=== PATIENT | male | born 1955 | race African-American/Black ===

== ENCOUNTER → 2016-10-04 | Outpatient (CLI) | payer BC ==
--- NOTE | 2016-10-04 15:41 | REP ---
Prostate sonography: History: A large prostate nodule, testis mass. Sonographic findings: Transrectal prostate sonography demonstrates unremarkable seminal vesicles. Prostate gland is heterogeneously enlarged with calcifications and cystic changes noted. Glandular dimensions are measured at 4.8 x 3.1 x 4.8 cm with a calculated glandular volume of 37.4 mL. There is a 5 x 6 x 3 mm hypoechoic nodule in the peripheral zone on the left at the mid apical region. There is a small ejaculatory duct cyst on the left. This measures 2.4 mm. Impression: Heterogeneous enlargement of the central gland consistent with BPH. 6 mm hypoechoic nodule in the left mid apical peripheral zone. 2 mm cystic area in the region of the ejaculatory duct on the left. Signed by Richy Robin MD 10/04/2016 07:18 P
--- NOTE | 2016-10-05 03:30 | REP ---
Clinical: Enlarged left michelle scrotum. Technique: Real time romero scale and color Doppler evaluation using linear high frequency transducer. Findings: The bilateral testicles are normal in contour, size, echogenicity, and vascularity without evidence for intratesticular mass, infectious/inflammatory process, or torsion. Physical findings correspond to a 6.2 x 4.7 x 5.1 cm left epididymal cyst. Small insignificant hydroceles are identified. No varicoceles noted. Right testicle measures 5.3 x 2.7 x 1.9 cm. Left testicle measures 4.2 x 2.3 x 3.6 cm. Impression: 6 cm left epididymal head cyst. Normal bilateral testicles. Signed by Merlin Hall MD 10/05/2016 03:21 A
== END ==
LOC: M RAD 12:53
PROVIDERS: ATTEND Physician Assistant
DX: N40.0 Benign prostatic hyperplasia without lower urinary tract symptoms (principal); N50.3 Cyst of epididymis

== ENCOUNTER → 2021-08-19 | Outpatient (CLI) | payer BC, OTHER ==
[~2021-08-19] MED LIST: BUPR15TASR PO; LIDOCAINE 1% MDV 20ML VIAL As Ordered ONE; MELA3TAB49 PO; MIDAZOLAM INJ 2MG/2ML VIAL (J2250 PER 1MG) As Ordered ONE; NS 1,000 ML IV SCH; ONDA-84 PO; PROC10TA5 PO; ceFAZolin 2 GM/D5W 50 ML IV BAG (J0690 PER 500MG) As Ordered ONE; ceFAZolin SOD 2 GM in IV 1 EA IV ONE; diphenhydrAMINE 50MG/ML VIAL (J1200) As Ordered ONE; fentaNYL 100 MCG/2 ML INJECTION As Ordered ONE
[2021-08-19 14:52] VITALS: BP 144/78
== END ==
LOC: M IRPRO 10:03
PROVIDERS: ATTEND Internal Medicine Medical Oncology
DX: C7A.1 Malignant poorly differentiated neuroendocrine tumors (principal); C34.90 Malignant neoplasm of unspecified part of unspecified bronchus or lung
CPT/HCPCS: 36561; 99152; 99153; C1769; C1788; C1894; J0690; J1200; J1642; J1644; J2250; J3010

== ENCOUNTER → 2021-09-08 | Outpatient (POV) | payer OTHER ==
[~2021-09-08] VITALS: Ht 182.9 cm; Wt 84.0 kg
[~2021-09-08] MED LIST changes: -LIDOCAINE 1% MDV 20ML VIAL As Ordered ONE; -MIDAZOLAM INJ 2MG/2ML VIAL (J2250 PER 1MG) As Ordered ONE; -NS 1,000 ML IV SCH; -ceFAZolin 2 GM/D5W 50 ML IV BAG (J0690 PER 500MG) As Ordered ONE; -ceFAZolin SOD 2 GM in IV 1 EA IV ONE; -diphenhydrAMINE 50MG/ML VIAL (J1200) As Ordered ONE; -fentaNYL 100 MCG/2 ML INJECTION As Ordered ONE
[2021-09-08 10:00] VITALS: BP 148/83
== END ==
LOC: M IRPOV 09:48
PROVIDERS: ATTEND Radiology Diagnostic Radiology
DX: Z45.2 Encounter for adjustment and management of vascular access device (principal)

== ENCOUNTER → 2021-10-12 | Outpatient (CLI) | payer BC, OTHER ==
[~2021-10-12] MED LIST changes: +DECA4TAB PO; +GASTROGRAFIN SOLUTION 30ML (Q9963) As Ordered ONE; +ISOVUE-370 76% 100ML VIAL As Ordered ONE
== END ==
LOC: M RAD 15:32
PROVIDERS: ATTEND Internal Medicine Medical Oncology
DX: C34.90 Malignant neoplasm of unspecified part of unspecified bronchus or lung (principal)
CPT/HCPCS: 71260; 74177; J1642; Q9963; Q9967

== ENCOUNTER → 2021-12-14 | Outpatient (REF) | payer OTHER, BC ==
[~2021-12-14] MED LIST changes: +AZIT500T5 PO; -GASTROGRAFIN SOLUTION 30ML (Q9963) As Ordered ONE; -ISOVUE-370 76% 100ML VIAL As Ordered ONE
== END ==
LOC: M LAB REF 11:46
PROVIDERS: ATTEND Internal Medicine Medical Oncology
DX: C34.90 Malignant neoplasm of unspecified part of unspecified bronchus or lung (principal)

== ENCOUNTER → 2022-01-05 | Outpatient (CLI) | payer OTHER ==
[~2022-01-05] MED LIST changes: +GASTROGRAFIN SOLUTION 30ML (Q9963) As Ordered ONE; +ISOVUE-370 76% 100ML VIAL As Ordered ONE
== END ==
LOC: M RAD 11:28
PROVIDERS: ATTEND Internal Medicine Medical Oncology
DX: C34.90 Malignant neoplasm of unspecified part of unspecified bronchus or lung (principal)
CPT/HCPCS: 71260; 74177; J1642; Q9963; Q9967

== ENCOUNTER → 2022-04-06 | Outpatient (CLI) | payer OTHER ==
[~2022-04-06] MED LIST changes: +NOXI1TAB PO
== END ==
LOC: M RAD 12:31
PROVIDERS: ATTEND Internal Medicine Medical Oncology
DX: C34.90 Malignant neoplasm of unspecified part of unspecified bronchus or lung (principal)
CPT/HCPCS: 71260; 74177; J1642; Q9963; Q9967

== ENCOUNTER → 2022-05-23 | Outpatient (CLI) | payer OTHER ==
[~2022-05-23] MED LIST changes: -GASTROGRAFIN SOLUTION 30ML (Q9963) As Ordered ONE; -ISOVUE-370 76% 100ML VIAL As Ordered ONE; +VITA-183 PO
== END ==
LOC: M LABSMTC 11:54
PROVIDERS: ATTEND Anesthesiology
DX: Z01.812 Encounter for preprocedural laboratory examination (principal); Z20.822 Contact with and (suspected) exposure to COVID-19

== ENCOUNTER 2022-05-27 11:18 | Day surgery (SDC) | payer OTHER ==
[~2022-05-27] VITALS: Ht 182.9 cm; Wt 86.1 kg
[~2022-05-27 11:18] MED LIST changes: +NS 1,000 ML IV ONE
[2022-05-27 13:40] VITALS: BP 146/85
== END 2022-05-27 13:50 | disposition home or self-care (01) ==
LOC: M OPP 11:18
PROVIDERS: ATTEND Surgery
DX: Z12.11 Encounter for screening for malignant neoplasm of colon (principal); D12.6 Benign neoplasm of colon, unspecified; K57.30 Diverticulosis of large intestine without perforation or abscess without bleeding; Z87.891 Personal history of nicotine dependence; Z85.118 Personal history of other malignant neoplasm of bronchus and lung; Z85.528 Personal history of other malignant neoplasm of kidney; Z92.21 Personal history of antineoplastic chemotherapy; Z92.3 Personal history of irradiation

== ENCOUNTER 2022-07-15 23:15 | Emergency (ER) | payer BC, OTHER ==
[~2022-07-15] VITALS: Ht 182.9 cm; Wt 91.0 kg
[~2022-07-15 23:15] MED LIST changes: -NS 1,000 ML IV ONE; +PEPC40TA12 PO; +PRED20TA PO
[2022-07-15] MEDS ORDERED: NS 1,000 ML IV ONE (23:45)
[2022-07-15] MEDS ORDERED: ONDANSETRON 4MG 2ML VIAL IV ONE (23:50)
[2022-07-15] MEDS ORDERED: ATROPINE SULF 1MG/10ML SYRINGE IV STA (23:50)
[2022-07-16] MEDS ORDERED: MIDAZOLAM INJ 2MG/2ML VIAL (J2250 PER 1MG) IV ONE (00:05)
[2022-07-16] MEDS ORDERED: MORPHINE 4 MG/ML 1ML VIAL As Ordered ONE (00:15)
[2022-07-16 00:21] LABS: CK-MB VALUE MASS < 1.0 NG/ML (<3.6); ETHYL ALCOHOL (ETHANOL) 0.017 % (0.000-0.010)
[2022-07-16 00:25] LABS: FREE T4 1.11 NG/DL (0.89-1.76); THYROID STIMULATING HORMONE 3.919 uIU/ML (0.55-4.78)
[2022-07-16] MEDS ORDERED: HEPARIN SOD (PORCINE) 5000UNITS/ML 1ML VIAL/SYRINGE IV ONE (00:30)
[2022-07-16] MEDS ORDERED: ASPIRIN 81MG CHEW TABLET PO ONE (00:30)
[2022-07-16] MEDS ORDERED: HEPARIN DRIP 25,000 UNITS in IV 1 EA IV SCH (00:30)
[2022-07-16 00:31] LABS: BASO # 0.1 10^3/uL (0.0-0.2); BASO % 0.7 % (0.0-1.0); EOS # 0.2 10^3/uL (0.0-0.5); EOS % 0.8 % (0.0-3.0); HEMATOCRIT 44.7 % (42.0-52.0); HEMOGLOBIN 14.6 g/dl (13.5-17.5); LYMPH # 3.7 10^3/uL (1.5-5.0); LYMPH % 19.6 % (24.0-44.0); MEAN CORPUSCULAR HEMOGLOBIN 28.6 pg (27.0-33.0); MEAN CORPUSCULAR HGB CONC 32.7 g/dl (32.0-36.5); MEAN CORPUSCULAR VOLUME 87.5 fl (80.0-96.0); MONO % 9.4 % (2.0-8.0); NEUTROPHILS # 12.8 10^3/uL (1.5-8.5); NEUTROPHILS % 68.3 % (36.0-66.0); PLATELET COUNT, AUTOMATED 294 10^3/uL (150-450); RED BLOOD COUNT 5.11 10^6/uL (4.30-6.10); WHITE BLOOD COUNT 18.7 10^3/uL (4.0-10.0)
[2022-07-16 00:35] LABS: CPK CREATINE PHOSPHOKINASE 53 U/L (46-171); MB/CK RELATIVE INDEX 1.88 (< OR =4)
[2022-07-16 00:42] LABS: BLOOD UREA NITROGEN 22 MG/DL (9-23); CALCIUM LEVEL 10.4 MG/DL (8.3-10.6); CARBON DIOXIDE LEVEL 22 MMOL/L (20-31); CHLORIDE LEVEL 102 MMOL/L (98-107); CREATININE FOR GFR 1.36 MG/DL (0.70-1.30); GLOMERULAR FILTRATION RATE 55.3 (>49); GLUCOSE, FASTING 130 MG/DL (74-106); POTASSIUM SERUM 4.4 MMOL/L (3.5-5.1); SODIUM LEVEL 138 MMOL/L (136-145)
[2022-07-16 01:12] VITALS: BP 87/53
[2022-07-16 01:21] LABS: MONO # 1.8 10^3/uL (0.0-0.8)
[2022-07-16 01:25] LABS: RSV AMPLIFICATION NEGATIVE (NEGATIVE)
== END 2022-07-16 01:31 | disposition short-term general hospital (02) ==
LOC: M ED 23:15
DX: I21.3 ST elevation (STEMI) myocardial infarction of unspecified site (principal); I44.1 Atrioventricular block, second degree; R00.1 Bradycardia, unspecified; F17.200 Nicotine dependence, unspecified, uncomplicated; F12.10 Cannabis abuse, uncomplicated; Z79.899 Other long term (current) drug therapy
CPT/HCPCS: 71045; 80048; 82077; 82550; 82553; 83880; 84439; 84443; 84484; 85025; 87631; 93005; 93041; 94760; 96361; 96365; 99285; J0461; J1644; J2250; J2405

== ENCOUNTER → 2022-07-22 | Outpatient (CLI) | payer OTHER ==
[~2022-07-22] MED LIST changes: +GASTROGRAFIN SOLUTION 30ML As Ordered ONE; +ISOVUE-370 76% 100ML VIAL As Ordered ONE
== END ==
LOC: M RAD 11:05
PROVIDERS: ATTEND Internal Medicine Medical Oncology
DX: C34.91 Malignant neoplasm of unspecified part of right bronchus or lung (principal)
CPT/HCPCS: 71260; 74177; Q9963; Q9967

== ENCOUNTER 2022-08-21 13:38 | Inpatient (IN) | payer BC, OTHER ==
[~2022-08-21] VITALS: Ht 182.9 cm; Wt 82.7 kg
[~2022-08-21 13:38] MED LIST changes: +ASPI81CH33 PO; +ATOR80TA59 PO; +BRIL90TA PO; -GASTROGRAFIN SOLUTION 30ML As Ordered ONE; -ISOVUE-370 76% 100ML VIAL As Ordered ONE; +NITR0.4S14 SL; +ONDA8TAB8 PO; +TOPR50TA PO
[2022-08-21] MEDS ORDERED: PROMETHAZINE 25MG/ML 1ML VIAL IV ONE (15:10)
[2022-08-21 15:28] LABS: BASO % 0.4 % (0.0-1.0); EOS % 0.4 % (0.0-3.0); HEMATOCRIT 44.8 % (42.0-52.0); HEMOGLOBIN 14.8 g/dl (13.5-17.5); LYMPH # 0.7 10^3/uL (1.5-5.0); LYMPH % 7.6 % (24.0-44.0); MEAN CORPUSCULAR VOLUME 84.8 fl (80.0-96.0); MONO # 0.2 10^3/uL (0.0-0.8); MONO % 1.8 % (2.0-8.0); NEUTROPHILS # 8.1 10^3/uL (1.5-8.5); NEUTROPHILS % 89.6 % (36.0-66.0); PLATELET COUNT, AUTOMATED 268 10^3/uL (150-450); RED BLOOD COUNT 5.28 10^6/uL (4.30-6.10)
[2022-08-21] MEDS: NS 1,000 ML IV SCH ×2 (15:31→22:00)
[2022-08-21 15:55] LABS: BLOOD UREA NITROGEN 18 MG/DL (9-23); CALCIUM LEVEL 9.3 MG/DL (8.3-10.6); CARBON DIOXIDE LEVEL 25 MMOL/L (20-31); CHLORIDE LEVEL 99 MMOL/L (98-107); CREATININE FOR GFR 0.84 MG/DL (0.70-1.30); GLOMERULAR FILTRATION RATE > 60.0 (>49); GLUCOSE, FASTING 110 MG/DL (74-106); POTASSIUM SERUM 4.6 MMOL/L (3.5-5.1); SODIUM LEVEL 131 MMOL/L (136-145)
[2022-08-21 15:56] LABS: ALBUMIN 3.2 G/DL (3.2-5.2); BILIRUBIN,DIRECT 0.2 MG/DL (<0.4); BILIRUBIN,TOTAL 0.8 MG/DL (0.3-1.2); TOTAL PROTEIN 7.8 G/DL (5.7-8.2)
[2022-08-21] MEDS ORDERED: ONDANSETRON 4MG 2ML VIAL IV ONE (17:25)
[2022-08-21] MEDS: TICAGRELOR 90 MG TABLET (BRILINTA) PO SCH (21:00)
[2022-08-21 21:14] LABS: RSV AMPLIFICATION NEGATIVE (NEGATIVE)
[2022-08-21] MEDS ORDERED: HOME MED LIST COMPLETE! XX SCH (21:15)
[2022-08-21] MEDS ORDERED: NITROGLYCERIN 0.4MG SUBL TABLET SL SCH (21:45)
[2022-08-21] MEDS ORDERED: PROCHLORPERAZINE 10MG 2ML VIAL IM PRN (22:00)
[2022-08-21 22:04] LABS: INR 0.98; PROTHROMBIN TIME 13.2 SECONDS (12.5-14.5)
[2022-08-21 22:05] LABS: PARTIAL THROMBOPLASTIN TIME 31.6 SECONDS (24.8-34.2)
[2022-08-21] MEDS: ONDANSETRON 4MG 2ML VIAL IV PRN (22:54)
[2022-08-21 23:10] VITALS: BP 151/94
[2022-08-22] MEDS: NS 1,000 ML IV SCH ×3 (04:46→17:54)
[2022-08-22 06:00] VITALS: BP 149/80
[2022-08-22] MEDS: ONDANSETRON 4MG 2ML VIAL IV PRN ×2 (06:25→17:55)
[2022-08-22 06:34] VITALS: BP 141/73
[2022-08-22 08:31] LABS: HEMOGLOBIN 13.7 g/dl (13.5-17.5); MEAN CORPUSCULAR HEMOGLOBIN 28.2 pg (27.0-33.0); MEAN CORPUSCULAR HGB CONC 32.6 g/dl (32.0-36.5); MEAN CORPUSCULAR VOLUME 86.6 fl (80.0-96.0); PLATELET COUNT, AUTOMATED 232 10^3/uL (150-450); RED BLOOD COUNT 4.85 10^6/uL (4.30-6.10); WHITE BLOOD COUNT 6.7 10^3/uL (4.0-10.0)
[2022-08-22 09:00] LABS: BLOOD UREA NITROGEN 19 MG/DL (9-23); CALCIUM LEVEL 8.7 MG/DL (8.3-10.6); CARBON DIOXIDE LEVEL 21 MMOL/L (20-31); CHLORIDE LEVEL 103 MMOL/L (98-107); CREATININE FOR GFR 0.78 MG/DL (0.70-1.30); GLOMERULAR FILTRATION RATE > 60.0 (>49); GLUCOSE, FASTING 92 MG/DL (74-106); MAGNESIUM LEVEL 1.8 MG/DL (1.8-2.4); POTASSIUM SERUM 4.7 MMOL/L (3.5-5.1); SODIUM LEVEL 132 MMOL/L (136-145)
[2022-08-22] MEDS: TICAGRELOR 90 MG TABLET (BRILINTA) PO SCH ×2 (09:23→20:45)
[2022-08-22] MEDS: ASPIRIN 81MG CHEW TABLET PO SCH (09:23)
[2022-08-22] MEDS: FAMOTIDINE 20 MG TAB PO SCH (09:23)
[2022-08-22] MEDS: ATORVASTATIN 20 MG TAB PO SCH (09:23)
[2022-08-22] MEDS: METOPROLOL SUCC (TopROL XL) 50MG **XL** TAB PO SCH (09:24)
[2022-08-22 14:00] VITALS: BP 137/89
[2022-08-22] MEDS ORDERED: MIRALAX *UNIT DOSE* 17GM PACKET PO PRN (16:35)
[2022-08-22] MEDS: ENOXAPARIN 40MG/0.4ML SYRINGE (J1650 PER 10MG) SC SCH (17:54)
[2022-08-22] MEDS: SENNA 8.6 MG TAB (SENOKOT) PO SCH (20:45)
[2022-08-22] MEDS: DOCUSATE SODIUM 100MG CAPSULE PO SCH (20:45)
[2022-08-22 22:00] VITALS: BP 120/73
[2022-08-23] MEDS: NS 1,000 ML IV SCH ×4 (00:30→18:53)
[2022-08-23 05:41] LABS: HEMATOCRIT 38.4 % (42.0-52.0); HEMOGLOBIN 12.7 g/dl (13.5-17.5); MEAN CORPUSCULAR HEMOGLOBIN 28.1 pg (27.0-33.0); MEAN CORPUSCULAR HGB CONC 33.1 g/dl (32.0-36.5); PLATELET COUNT, AUTOMATED 184 10^3/uL (150-450); RED BLOOD COUNT 4.52 10^6/uL (4.30-6.10); WHITE BLOOD COUNT 4.9 10^3/uL (4.0-10.0)
[2022-08-23 06:00] VITALS: BP 128/73
[2022-08-23 06:11] LABS: ALBUMIN 2.6 G/DL (3.2-5.2); ALKALINE PHOSPHATASE 74 U/L (46-116); ALT/SGPT 75 U/L (7.0-40); AST/SGOT 63 U/L (<34); BILIRUBIN,TOTAL 0.9 MG/DL (0.3-1.2); BLOOD UREA NITROGEN 17 MG/DL (9-23); CALCIUM LEVEL 8.4 MG/DL (8.3-10.6); CARBON DIOXIDE LEVEL 24 MMOL/L (20-31); CHLORIDE LEVEL 103 MMOL/L (98-107); CREATININE FOR GFR 0.86 MG/DL (0.70-1.30); GLOMERULAR FILTRATION RATE > 60.0 (>49); GLUCOSE, FASTING 104 MG/DL (74-106); POTASSIUM SERUM 4.2 MMOL/L (3.5-5.1); SODIUM LEVEL 133 MMOL/L (136-145); TOTAL PROTEIN 5.8 G/DL (5.7-8.2)
[2022-08-23] MEDS: FAMOTIDINE 20 MG TAB PO SCH (08:29)
[2022-08-23] MEDS: TICAGRELOR 90 MG TABLET (BRILINTA) PO SCH ×2 (08:29→20:34)
[2022-08-23] MEDS: ASPIRIN 81MG CHEW TABLET PO SCH (08:29)
[2022-08-23] MEDS: DOCUSATE SODIUM 100MG CAPSULE PO SCH ×2 (08:29→20:34)
[2022-08-23] MEDS: ATORVASTATIN 20 MG TAB PO SCH (08:29)
[2022-08-23] MEDS: METOPROLOL SUCC (TopROL XL) 50MG **XL** TAB PO SCH (08:30)
[2022-08-23] MEDS: ONDANSETRON 4MG 2ML VIAL IV PRN (12:30)
[2022-08-23 14:00] VITALS: BP 146/90
[2022-08-23] MEDS: ENOXAPARIN 40MG/0.4ML SYRINGE (J1650 PER 10MG) SC SCH (18:00)
[2022-08-23] MEDS: SENNA 8.6 MG TAB (SENOKOT) PO SCH (20:34)
[2022-08-23 22:21] VITALS: BP 121/81
[2022-08-24] MEDS: NS 1,000 ML IV SCH ×2 (01:19→09:23)
[2022-08-24 06:01] VITALS: BP 143/94
[2022-08-24 06:02] LABS: HEMOGLOBIN 13.8 g/dl (13.5-17.5); MEAN CORPUSCULAR HEMOGLOBIN 27.9 pg (27.0-33.0); MEAN CORPUSCULAR HGB CONC 32.9 g/dl (32.0-36.5); MEAN CORPUSCULAR VOLUME 84.8 fl (80.0-96.0); PLATELET COUNT, AUTOMATED 185 10^3/uL (150-450); RED BLOOD COUNT 4.95 10^6/uL (4.30-6.10); WHITE BLOOD COUNT 3.9 10^3/uL (4.0-10.0)
[2022-08-24 06:29] LABS: ALBUMIN 2.8 G/DL (3.2-5.2); ALKALINE PHOSPHATASE 85 U/L (46-116); ALT/SGPT 72 U/L (7.0-40); AST/SGOT 58 U/L (<34); BILIRUBIN,TOTAL 0.5 MG/DL (0.3-1.2); BLOOD UREA NITROGEN 12 MG/DL (9-23); CALCIUM LEVEL 8.5 MG/DL (8.3-10.6); CARBON DIOXIDE LEVEL 25 MMOL/L (20-31); CHLORIDE LEVEL 102 MMOL/L (98-107); CREATININE FOR GFR 0.81 MG/DL (0.70-1.30); GLOMERULAR FILTRATION RATE > 60.0 (>49); GLUCOSE, FASTING 86 MG/DL (74-106); POTASSIUM SERUM 4.4 MMOL/L (3.5-5.1); SODIUM LEVEL 132 MMOL/L (136-145); TOTAL PROTEIN 6.7 G/DL (5.7-8.2)
[2022-08-24 09:20] VITALS: BP 143/94
[2022-08-24] MEDS: METOPROLOL SUCC (TopROL XL) 50MG **XL** TAB PO SCH (09:20)
[2022-08-24] MEDS: ASPIRIN 81MG CHEW TABLET PO SCH (09:20)
[2022-08-24] MEDS: ATORVASTATIN 20 MG TAB PO SCH (09:20)
[2022-08-24] MEDS: TICAGRELOR 90 MG TABLET (BRILINTA) PO SCH (09:20)
[2022-08-24] MEDS: DOCUSATE SODIUM 100MG CAPSULE PO SCH (09:20)
[2022-08-24] MEDS: FAMOTIDINE 20 MG TAB PO SCH (09:20)
== END 2022-08-24 10:25 | disposition home or self-care (01) | DRG 392 ==
LOC: M ED 13:38 → M ED INP 20:52 → ENRESERV 22:43 → M MS5PR 23:05
PROVIDERS: ADMIT Family Medicine; ATTEND General Practice
DX: R11.2 Nausea with vomiting, unspecified (principal); C34.90 Malignant neoplasm of unspecified part of unspecified bronchus or lung; E87.1 Hypo-osmolality and hyponatremia; J44.9 Chronic obstructive pulmonary disease, unspecified; I10 Essential (primary) hypertension; K21.9 Gastro-esophageal reflux disease without esophagitis; E78.5 Hyperlipidemia, unspecified; I25.10 Atherosclerotic heart disease of native coronary artery without angina pectoris; E86.0 Dehydration; Z92.21 Personal history of antineoplastic chemotherapy; Z95.2 Presence of prosthetic heart valve; K44.9 Diaphragmatic hernia without obstruction or gangrene; N20.0 Calculus of kidney; K57.30 Diverticulosis of large intestine without perforation or abscess without bleeding; K59.00 Constipation, unspecified; Z79.82 Long term (current) use of aspirin; Z79.899 Other long term (current) drug therapy; Z87.891 Personal history of nicotine dependence; N28.1 Cyst of kidney, acquired

== ENCOUNTER 2022-10-04 09:34 | Emergency (ER) | payer BC, MEDICARE, OTHER ==
[~2022-10-04] VITALS: Ht 182.9 cm; Wt 78.4 kg
[~2022-10-04 09:34] MED LIST changes: +OMEP-173 PO; +ZYPR5TAB2 PO
[2022-10-04] MEDS ORDERED: PROMETHAZINE 25MG/ML 1ML VIAL IV ONE (10:05)
[2022-10-04 10:34] LABS: BASO # 0.1 10^3/uL (0.0-0.2); BASO % 0.6 % (0.0-1.0); EOS % 0.1 % (0.0-3.0); HEMATOCRIT 36.4 % (42.0-52.0); HEMOGLOBIN 12.4 g/dl (13.5-17.5); LYMPH # 0.6 10^3/uL (1.5-5.0); LYMPH % 7.4 % (24.0-44.0); MEAN CORPUSCULAR HEMOGLOBIN 28.5 pg (27.0-33.0); MEAN CORPUSCULAR HGB CONC 34.1 g/dl (32.0-36.5); MEAN CORPUSCULAR VOLUME 83.7 fl (80.0-96.0); MONO # 0.2 10^3/uL (0.0-0.8); MONO % 1.8 % (2.0-8.0); NEUTROPHILS # 7.7 10^3/uL (1.5-8.5); NEUTROPHILS % 89.6 % (36.0-66.0); PLATELET COUNT, AUTOMATED 334 10^3/uL (150-450); RED BLOOD COUNT 4.35 10^6/uL (4.30-6.10); WHITE BLOOD COUNT 8.6 10^3/uL (4.0-10.0)
[2022-10-04 10:40] LABS: INR 0.93; PROTHROMBIN TIME 12.7 SECONDS (12.5-14.5)
[2022-10-04 10:41] LABS: PARTIAL THROMBOPLASTIN TIME 29.3 SECONDS (24.8-34.2)
[2022-10-04 11:00] LABS: RSV AMPLIFICATION NEGATIVE (NEGATIVE)
[2022-10-04 11:01] LABS: CK-MB VALUE MASS 18.9 NG/ML (<3.6)
[2022-10-04 11:03] LABS: ETHYL ALCOHOL (ETHANOL) 0.003 % (0.000-0.010)
[2022-10-04 11:04] LABS: THYROID STIMULATING HORMONE 1.087 uIU/ML (0.55-4.78)
[2022-10-04 11:05] LABS: ALBUMIN 3.4 G/DL (3.2-5.2); ALKALINE PHOSPHATASE 109 U/L (46-116); ALT/SGPT 63 U/L (7.0-40); AST/SGOT 40 U/L (<34); BILIRUBIN,DIRECT 0.3 MG/DL (<0.4); BILIRUBIN,TOTAL 0.7 MG/DL (0.3-1.2); BLOOD UREA NITROGEN 25 MG/DL (9-23); CALCIUM LEVEL 9.3 MG/DL (8.3-10.6); CARBON DIOXIDE LEVEL 26 MMOL/L (20-31); CHLORIDE LEVEL 95 MMOL/L (98-107); CPK CREATINE PHOSPHOKINASE 155 U/L (46-171); CREATININE FOR GFR 0.82 MG/DL (0.70-1.30); GLOMERULAR FILTRATION RATE > 60.0 (>49); GLUCOSE, FASTING 109 MG/DL (74-106); MB/CK RELATIVE INDEX 12.19 (< OR =4); POTASSIUM SERUM 4.2 MMOL/L (3.5-5.1); SODIUM LEVEL 129 MMOL/L (136-145); TOTAL PROTEIN 7.4 G/DL (5.7-8.2)
[2022-10-04] MEDS ORDERED: ISOVUE-370 76% 100ML VIAL As Ordered ONE (11:27)
[2022-10-04 13:11] LABS: CK-MB VALUE MASS 24.1 NG/ML (<3.6)
[2022-10-04 13:12] LABS: MB/CK RELATIVE INDEX 14.09 (< OR =4)
[2022-10-04] MEDS ORDERED: TICAGRELOR 90 MG TABLET (BRILINTA) PO ONE (14:00)
[2022-10-04] MEDS ORDERED: HEPARIN DRIP 25,000 UNITS in IV 1 EA IV SCH (14:00)
[2022-10-04] MEDS ORDERED: HEPARIN SOD (PORCINE) 5000UNITS/ML 1ML VIAL/SYRINGE IV ONE (14:00)
[2022-10-04] MEDS ORDERED: ASPIRIN 81MG CHEW TABLET PO ONE (14:00)
[2022-10-04] MEDS ORDERED: ONDANSETRON 4MG 2ML VIAL IV ONE (15:05)
[2022-10-04 15:37] VITALS: BP 137/79
== END 2022-10-04 15:44 | disposition short-term general hospital (02) ==
LOC: M ED 09:34
DX: I21.4 Non-ST elevation (NSTEMI) myocardial infarction (principal); R55 Syncope and collapse; I25.2 Old myocardial infarction; I10 Essential (primary) hypertension; J44.9 Chronic obstructive pulmonary disease, unspecified; K21.9 Gastro-esophageal reflux disease without esophagitis; E78.5 Hyperlipidemia, unspecified; F17.200 Nicotine dependence, unspecified, uncomplicated; Z86.79 Personal history of other diseases of the circulatory system; Z79.82 Long term (current) use of aspirin; Z79.02 Long term (current) use of antithrombotics/antiplatelets; Z79.83 Long term (current) use of bisphosphonates; Z79.899 Other long term (current) drug therapy
CPT/HCPCS: 70450; 71045; 71275; 72125; 74177; 80048; 80076; 82077; 82550; 82553; 83605; 84145; 84443; 84484; 85025; 85610; 85730; 87040; 87631; 93005; 93041; 94760; 96374; 96375; 99285; J2405; Q9967

== ENCOUNTER 2022-11-16 20:00 | Observation (INO) | payer BC, MEDICARE, OTHER ==
[~2022-11-16] VITALS: Ht 182.9 cm; Wt 76.6 kg
[~2022-11-16 20:00] MED LIST changes: +CLOP75TA99 PO; +DEXA4TA PO; +ISOS1TAB35 PO; +PANT40TA29 PO; +SODIUM CHLORIDE 0.9% INJ 10 ML SYR IV SCH
[2022-11-16] MEDS ORDERED: METOCLOPRAMIDE INJ 10MG/2ML VIAL IV ONE (20:35)
[2022-11-16] MEDS ORDERED: NS 1,000 ML IV ONE (20:35)
[2022-11-16 21:22] LABS: BASO % 1.4 % (0.0-1.0); EOS % 1.1 % (0.0-3.0); HEMATOCRIT 33.5 % (42.0-52.0); HEMOGLOBIN 11.2 g/dl (13.5-17.5); LYMPH # 0.5 10^3/uL (1.5-5.0); LYMPH % 17.7 % (24.0-44.0); MEAN CORPUSCULAR HEMOGLOBIN 28.4 pg (27.0-33.0); MEAN CORPUSCULAR HGB CONC 33.4 g/dl (32.0-36.5); MEAN CORPUSCULAR VOLUME 84.8 fl (80.0-96.0); MONO # 0.1 10^3/uL (0.0-0.8); MONO % 3.2 % (2.0-8.0); NEUTROPHILS # 2.1 10^3/uL (1.5-8.5); NEUTROPHILS % 75.2 % (36.0-66.0); PLATELET COUNT, AUTOMATED 217 10^3/uL (150-450); RED BLOOD COUNT 3.95 10^6/uL (4.30-6.10); WHITE BLOOD COUNT 2.8 10^3/uL (4.0-10.0)
[2022-11-16 21:42] LABS: LIPASE 62 U/L (12-53)
[2022-11-16 21:44] LABS: ALKALINE PHOSPHATASE 99 U/L (46-116); ALT/SGPT 40 U/L (7.0-40); AST/SGOT 40 U/L (<34); BILIRUBIN,DIRECT 0.2 MG/DL (<0.4); BILIRUBIN,TOTAL 0.3 MG/DL (0.3-1.2); BLOOD UREA NITROGEN 18 MG/DL (9-23); CALCIUM LEVEL 8.9 MG/DL (8.3-10.6); CARBON DIOXIDE LEVEL 24 MMOL/L (20-31); CHLORIDE LEVEL 101 MMOL/L (98-107); CREATININE FOR GFR 0.77 MG/DL (0.70-1.30); GLOMERULAR FILTRATION RATE > 60.0 (>49); GLUCOSE, FASTING 102 MG/DL (74-106); MAGNESIUM LEVEL 1.5 MG/DL (1.8-2.4); SODIUM LEVEL 131 MMOL/L (136-145); TOTAL PROTEIN 6.7 G/DL (5.7-8.2)
[2022-11-16] MEDS ORDERED: PROMETHAZINE 25MG/ML 1ML VIAL IV ONE (22:00)
[2022-11-16] MEDS ORDERED: MAG SULF 1GM/100ML (MAG RUN) 1 GM in IV 1 EA IV ONE (22:05)
[2022-11-16] MEDS ORDERED: ACETAMINOPHEN TAB 650MG DOSE (2X325MG) PO PRN (23:55)
[2022-11-17] MEDS ORDERED: SODIUM CHLORIDE 0.9% INJ 10 ML SYR IV PRN
[2022-11-17] MEDS ORDERED: LR 1,000 ML IV ONE
[2022-11-17] MEDS ORDERED: OLANZapine 5 MG TAB PO ONE
[2022-11-17] MEDS ORDERED: PROMETHAZINE 25MG/ML 1ML VIAL IV PRN
[2022-11-17] MEDS ORDERED: NITR4TASL SL (00:29)
[2022-11-17] MEDS ORDERED: METO1TAB33 PO (00:29)
[2022-11-17] MEDS ORDERED: HOME MED LIST COMPLETE! XX SCH (00:30)
[2022-11-17 00:31] LABS: RSV AMPLIFICATION NEGATIVE (NEGATIVE)
[2022-11-17 01:34] VITALS: BP 143/82
[2022-11-17] MEDS: METOCLOPRAMIDE INJ 10MG/2ML VIAL IV SCH ×3 (05:15→16:00)
[2022-11-17 06:00] VITALS: BP 139/81
[2022-11-17 06:50] LABS: HEMOGLOBIN 10.5 g/dl (13.5-17.5); MEAN CORPUSCULAR HEMOGLOBIN 28.3 pg (27.0-33.0); MEAN CORPUSCULAR HGB CONC 32.8 g/dl (32.0-36.5); MEAN CORPUSCULAR VOLUME 86.3 fl (80.0-96.0); PLATELET COUNT, AUTOMATED 164 10^3/uL (150-450); RED BLOOD COUNT 3.71 10^6/uL (4.30-6.10); WHITE BLOOD COUNT 1.9 10^3/uL (4.0-10.0)
[2022-11-17 07:15] LABS: BLOOD UREA NITROGEN 14 MG/DL (9-23); CALCIUM LEVEL 8.9 MG/DL (8.3-10.6); CARBON DIOXIDE LEVEL 25 MMOL/L (20-31); CHLORIDE LEVEL 102 MMOL/L (98-107); CREATININE FOR GFR 0.75 MG/DL (0.70-1.30); GLOMERULAR FILTRATION RATE > 60.0 (>49); GLUCOSE, FASTING 88 MG/DL (74-106); MAGNESIUM LEVEL 1.8 MG/DL (1.8-2.4); POTASSIUM SERUM 4.3 MMOL/L (3.5-5.1); SODIUM LEVEL 132 MMOL/L (136-145)
[2022-11-17 08:41] VITALS: BP 140/72
[2022-11-17] MEDS ORDERED: METOPROLOL SUCC (TopROL XL) 50MG **XL** TAB PO SCH (09:00)
[2022-11-17] MEDS ORDERED: SODIUM CHLORIDE 0.9% INJ 10 ML SYR IV SCH (09:00)
[2022-11-17] MEDS ORDERED: ISOSORBIDE MON. (IMDUR) 30MG XR TAB PO SCH (09:00)
[2022-11-17] MEDS ORDERED: ASPIRIN 81MG CHEW TABLET PO SCH (09:00)
[2022-11-17] MEDS ORDERED: PANTOPRAZOLE 40MG TAB (PROTONIX) PO SCH (09:00)
[2022-11-17] MEDS ORDERED: CLOPIDOGREL 75 MG TAB PO SCH (09:00)
[2022-11-17] MEDS ORDERED: ENOXAPARIN 40MG/0.4ML SYRINGE (J1650 PER 10MG) SC SCH (09:00)
[2022-11-17] MEDS ORDERED: ATORVASTATIN 20 MG TAB PO SCH (09:00)
[2022-11-17 13:28] LABS: BASO % 2.3 % (0.0-1.0); EOS % 2.3 % (0.0-3.0); LYMPH # 0.5 10^3/uL (1.5-5.0); LYMPH % 26.7 % (24.0-44.0); MONO # 0.1 10^3/uL (0.0-0.8); MONO % 4.5 % (2.0-8.0); NEUTROPHILS # 1.1 10^3/uL (1.5-8.5); NEUTROPHILS % 63.1 % (36.0-66.0)
[2022-11-17 14:00] VITALS: BP_SYST 108; BP_DIAS 6; BP_DIAS 66
== END 2022-11-17 17:42 | disposition home or self-care (01) ==
LOC: M ED 20:00 → M ED INP 20:01 → M MSPAV 11-17 01:34
PROVIDERS: ADMIT Family Medicine; ATTEND General Practice
DX: R11.2 Nausea with vomiting, unspecified (principal); D61.810 Antineoplastic chemotherapy induced pancytopenia; E87.1 Hypo-osmolality and hyponatremia; R77.0 Abnormality of albumin; C7A.1 Malignant poorly differentiated neuroendocrine tumors; I10 Essential (primary) hypertension; I25.10 Atherosclerotic heart disease of native coronary artery without angina pectoris; Z98.61 Coronary angioplasty status; Z79.899 Other long term (current) drug therapy; Z79.82 Long term (current) use of aspirin
CPT/HCPCS: 36415; 80048; 80076; 83690; 83735; 85025; 85027; 87631; 93005; 93041; 96361; 96372; 96374; 96375; 99285; G0378; J1650; J2550; J2765; J3475

== ENCOUNTER → 2022-11-30 | Outpatient (CLI) | payer BC, MEDICARE, OTHER ==
[~2022-11-30] MED LIST changes: +EMEN80PA PO; +ISOVUE-370 76% 100ML VIAL As Ordered ONE; +METO1TAB33 PO; +NITR4TASL SL; -SODIUM CHLORIDE 0.9% INJ 10 ML SYR IV SCH
== END ==
LOC: M RAD 11:28
PROVIDERS: ATTEND Nurse Practitioner
DX: R07.9 Chest pain, unspecified (principal); C34.90 Malignant neoplasm of unspecified part of unspecified bronchus or lung
CPT/HCPCS: 71260; Q9967

== ENCOUNTER → 2022-12-01 | Outpatient (CLI) | payer BC, MEDICARE, OTHER ==
[~2022-12-01] MED LIST changes: -ISOVUE-370 76% 100ML VIAL As Ordered ONE
== END ==
LOC: M ONCR 14:41
PROVIDERS: ATTEND General Practice
DX: C34.11 Malignant neoplasm of upper lobe, right bronchus or lung (principal); F17.218 Nicotine dependence, cigarettes, with other nicotine-induced disorders; F12.90 Cannabis use, unspecified, uncomplicated; M54.50 Low back pain, unspecified; R29.6 Repeated falls; Z79.01 Long term (current) use of anticoagulants; Z79.52 Long term (current) use of systemic steroids; Z79.82 Long term (current) use of aspirin; Z79.899 Other long term (current) drug therapy

== ENCOUNTER → 2022-12-06 | Outpatient (CLI) | payer BC, MEDICARE, OTHER ==
[~2022-12-06] MED LIST changes: +ACET-897 PO; +EMEN80CA PO; +LEVO1TAB40 PO; +PERC5TAB12 PO
== END ==
LOC: M WHC 12:58
PROVIDERS: ATTEND Nurse Practitioner
DX: R59.0 Localized enlarged lymph nodes (principal)

== ENCOUNTER 2022-12-07 10:39 | Inpatient (IN) | payer BC, MEDICARE, OTHER ==
[~2022-12-07] VITALS: Ht 182.9 cm; Wt 74.6 kg
[~2022-12-07 10:39] MED LIST changes: -ACET-897 PO; -EMEN80CA PO; -LEVO1TAB40 PO; -PERC5TAB12 PO
[2022-12-07 11:28] LABS: BASO # 0.1 10^3/uL (0.0-0.2); BASO % 0.5 % (0.0-1.0); EOS % 0.1 % (0.0-3.0); HEMOGLOBIN 10.5 g/dl (13.5-17.5); LYMPH # 0.5 10^3/uL (1.5-5.0); LYMPH % 3.3 % (24.0-44.0); MEAN CORPUSCULAR HEMOGLOBIN 27.6 pg (27.0-33.0); MEAN CORPUSCULAR HGB CONC 32.8 g/dl (32.0-36.5); NEUTROPHILS # 13.4 10^3/uL (1.5-8.5); NEUTROPHILS % 84.5 % (36.0-66.0); PLATELET COUNT, AUTOMATED 502 10^3/uL (150-450); RED BLOOD COUNT 3.81 10^6/uL (4.30-6.10); WHITE BLOOD COUNT 15.8 10^3/uL (4.0-10.0)
[2022-12-07] MEDS ORDERED: fentaNYL 100 MCG/2 ML INJECTION IV ONE (11:35)
[2022-12-07] MEDS ORDERED: NS 500 ML IV ONE (11:35)
[2022-12-07 11:50] LABS: CK-MB VALUE MASS < 1.0 NG/ML (<3.6)
[2022-12-07 11:52] LABS: LIPASE 35 U/L (12-53)
[2022-12-07 11:54] LABS: CPK CREATINE PHOSPHOKINASE 32 U/L (46-171); MB/CK RELATIVE INDEX 3.12 (< OR =4); THYROID STIMULATING HORMONE 1.462 uIU/ML (0.55-4.78)
[2022-12-07 11:55] LABS: FREE T4 0.99 NG/DL (0.89-1.76)
[2022-12-07 11:56] LABS: ALBUMIN 2.3 G/DL (3.2-5.2); ALKALINE PHOSPHATASE 88 U/L (46-116); ALT/SGPT 19 U/L (7.0-40); AST/SGOT 45 U/L (<34); BILIRUBIN,DIRECT 0.2 MG/DL (<0.4); BILIRUBIN,TOTAL 0.5 MG/DL (0.3-1.2); BLOOD UREA NITROGEN 16 MG/DL (9-23); CALCIUM LEVEL 9.2 MG/DL (8.3-10.6); CARBON DIOXIDE LEVEL 25 MMOL/L (20-31); CHLORIDE LEVEL 99 MMOL/L (98-107); CREATININE FOR GFR 0.77 MG/DL (0.70-1.30); GLOMERULAR FILTRATION RATE > 60.0 (>49); GLUCOSE, FASTING 96 MG/DL (74-106); POTASSIUM SERUM 4.4 MMOL/L (3.5-5.1); SODIUM LEVEL 133 MMOL/L (136-145); TOTAL PROTEIN 6.6 G/DL (5.7-8.2)
[2022-12-07 12:03] LABS: MONO # 1.8 10^3/uL (0.0-0.8)
[2022-12-07] MEDS ORDERED: ISOVUE-370 76% 100ML VIAL As Ordered ONE (12:07)
[2022-12-07 12:43] LABS: CK-MB VALUE MASS < 1.0 NG/ML (<3.6)
[2022-12-07 12:44] LABS: CPK CREATINE PHOSPHOKINASE 38 U/L (46-171); MB/CK RELATIVE INDEX 2.63 (< OR =4)
[2022-12-07] MEDS ORDERED: ACETAMINOPHEN TAB 650MG DOSE (2X325MG) PO PRN (14:30)
[2022-12-07 14:59] LABS: RSV AMPLIFICATION NEGATIVE (NEGATIVE)
[2022-12-07] MEDS ORDERED: PERCOCET 5MG/325MG TAB PO PRN (15:45)
[2022-12-07] MEDS ORDERED: LevoFLOXacin IV 750 MG in IV 1 EA IV SCH (16:00)
[2022-12-07] MEDS: PERCOCET 5MG/325MG TAB PO PRN (16:07)
[2022-12-07] MEDS ORDERED: IPRATROPIUM 0.5MG/ALBUTEROL 2.5MG INH SOL UD 3ML (DUONEB) NEB PRN (16:20)
[2022-12-07] MEDS ORDERED: EMEN80CA PO (16:29)
[2022-12-07] MEDS ORDERED: ACET-897 PO (16:32)
[2022-12-07] MEDS ORDERED: HOME MED LIST COMPLETE! XX SCH (16:35)
[2022-12-07] MEDS: NS 1,000 ML IV SCH (17:22)
[2022-12-08] MEDS: NS 1,000 ML IV SCH ×2 (03:04→13:15)
[2022-12-08 05:09] VITALS: BP 122/80
[2022-12-08] MEDS: PERCOCET 5MG/325MG TAB PO PRN (05:20)
[2022-12-08 06:09] LABS: BASO # 0.1 10^3/uL (0.0-0.2); BASO % 0.8 % (0.0-1.0); EOS % 0.4 % (0.0-3.0); HEMATOCRIT 30.3 % (42.0-52.0); HEMOGLOBIN 9.7 g/dl (13.5-17.5); LYMPH # 0.3 10^3/uL (1.5-5.0); LYMPH % 3.2 % (24.0-44.0); MEAN CORPUSCULAR HEMOGLOBIN 27.2 pg (27.0-33.0); MEAN CORPUSCULAR VOLUME 84.9 fl (80.0-96.0); MONO # 1.2 10^3/uL (0.0-0.8); MONO % 11.2 % (2.0-8.0); NEUTROPHILS % 83.9 % (36.0-66.0); PLATELET COUNT, AUTOMATED 437 10^3/uL (150-450); RED BLOOD COUNT 3.57 10^6/uL (4.30-6.10); WHITE BLOOD COUNT 10.7 10^3/uL (4.0-10.0)
[2022-12-08 06:39] LABS: BLOOD UREA NITROGEN 14 MG/DL (9-23); CALCIUM LEVEL 8.5 MG/DL (8.3-10.6); CARBON DIOXIDE LEVEL 23 MMOL/L (20-31); CHLORIDE LEVEL 101 MMOL/L (98-107); CREATININE FOR GFR 0.76 MG/DL (0.70-1.30); GLOMERULAR FILTRATION RATE > 60.0 (>49); GLUCOSE, FASTING 115 MG/DL (74-106); POTASSIUM SERUM 4.2 MMOL/L (3.5-5.1); SODIUM LEVEL 132 MMOL/L (136-145)
[2022-12-08 08:27] VITALS: BP 116/70
[2022-12-08] MEDS ORDERED: METOPROLOL SUCC (TopROL XL) 50MG **XL** TAB PO SCH (09:00)
[2022-12-08] MEDS ORDERED: CLOPIDOGREL 75 MG TAB PO SCH (09:00)
[2022-12-08] MEDS ORDERED: ASPIRIN 81MG CHEW TABLET PO SCH (09:00)
[2022-12-08] MEDS ORDERED: ATORVASTATIN 20 MG TAB PO SCH (09:00)
[2022-12-08] MEDS ORDERED: ISOSORBIDE MON. (IMDUR) 30MG XR TAB PO SCH (09:00)
[2022-12-08] MEDS ORDERED: ENOXAPARIN 40MG/0.4ML SYRINGE (J1650 PER 10MG) SC SCH (09:00)
[2022-12-08] MEDS ORDERED: PANTOPRAZOLE 40MG TAB (PROTONIX) PO SCH (09:00)
[2022-12-08] MEDS ORDERED: LEVO1TAB40 PO ×2 (10:27→11:10)
[2022-12-08] MEDS ORDERED: PERC5TAB12 PO ×3 (10:27→11:11)
[2022-12-08 11:47] VITALS: BP 119/70
[2022-12-08 11:53] VITALS: BP 119/70
[2022-12-08] MEDS ORDERED: LevoFLOXacin 750 MG TABLET PO SCH (16:00)
[2022-12-10 15:08] LABS: BODY FLUID CULTURE Not indicated. (.); LEGIONELLA ANTIGEN URINE Negative (Negative); ORGANISM ID Not indicated. (.); SPECIMEN SOURCE Urine (.); URINE STREP PNEUMONIAE ANTIGEN Negative (Negative)
[2022-12-10] MEDS ORDERED: PERC5TAB12 PO (15:11)
== END 2022-12-08 16:30 | disposition home or self-care (01) | DRG 194 ==
LOC: M ED 10:39 → M ED INP 14:27 → ENRESERV 12-08 04:26 → M ICU 12-08 04:56
PROVIDERS: ADMIT Internal Medicine; ATTEND Internal Medicine
DX: J18.9 Pneumonia, unspecified organism (principal); C34.31 Malignant neoplasm of lower lobe, right bronchus or lung; C78.2 Secondary malignant neoplasm of pleura; R59.0 Localized enlarged lymph nodes; J44.9 Chronic obstructive pulmonary disease, unspecified; K21.9 Gastro-esophageal reflux disease without esophagitis; E78.5 Hyperlipidemia, unspecified; I25.10 Atherosclerotic heart disease of native coronary artery without angina pectoris; M19.90 Unspecified osteoarthritis, unspecified site; Z79.899 Other long term (current) drug therapy; Z79.82 Long term (current) use of aspirin

== ENCOUNTER → 2022-12-22 | Outpatient (RCR) | payer OTHER, MEDICARE ==
[~2022-12-22] MED LIST changes: +ACET-897 PO; +EMEN80CA PO; +LEVO1TAB40 PO; +PERC5TAB12 PO
== END ==
LOC: M ONCR 12-03 10:02
PROVIDERS: ATTEND General Practice
DX: C34.11 Malignant neoplasm of upper lobe, right bronchus or lung (principal)

== ENCOUNTER → 2023-01-14 | Outpatient (CLI) | payer BC, MEDICARE | LOC: M RAD 11:58 | PROVIDERS: ATTEND General Practice | DX: C34.11 Malignant neoplasm of upper lobe, right bronchus or lung (principal) ==

== ENCOUNTER → 2023-01-21 | Outpatient (CLI) | payer BC, MEDICARE, OTHER | LOC: M ONCR 13:02 | PROVIDERS: ATTEND General Practice | DX: C34.11 Malignant neoplasm of upper lobe, right bronchus or lung (principal); M25.511 Pain in right shoulder; Z92.3 Personal history of irradiation ==

== ENCOUNTER → 2023-03-17 | Outpatient (CLI) | payer MEDICARE, OTHER ==
[~2023-03-17] MED LIST changes: +GASTROGRAFIN SOLUTION 30ML As Ordered ONE; +ISOVUE-370 76% 100ML VIAL As Ordered ONE; +TRAZ-252 PO
== END ==
LOC: M RAD 13:39
PROVIDERS: ATTEND Nurse Practitioner
DX: C34.90 Malignant neoplasm of unspecified part of unspecified bronchus or lung (principal)
CPT/HCPCS: 71260; 74177; Q9963; Q9967

== ENCOUNTER → 2023-04-22 | Outpatient (CLI) | payer OTHER, MEDICARE, BC ==
[~2023-04-22] MED LIST changes: -GASTROGRAFIN SOLUTION 30ML As Ordered ONE; -ISOVUE-370 76% 100ML VIAL As Ordered ONE; +MAGN400T2 PO; +NITR-67 PO
[2023-04-22 15:26] LABS: BASO # 0.1 10^3/uL (0.0-0.2); BASO % 0.7 % (0.0-1.0); HEMATOCRIT 25.9 % (42.0-52.0); HEMOGLOBIN 7.9 g/dl (13.5-17.5); LYMPH # 0.4 10^3/uL (1.5-5.0); LYMPH % 5.2 % (24.0-44.0); MEAN CORPUSCULAR HEMOGLOBIN 25.9 pg (27.0-33.0); MEAN CORPUSCULAR HGB CONC 30.5 g/dl (32.0-36.5); MEAN CORPUSCULAR VOLUME 84.9 fl (80.0-96.0); MONO # 0.6 10^3/uL (0.0-0.8); MONO % 6.9 % (2.0-8.0); NEUTROPHILS # 6.9 10^3/uL (1.5-8.5); NEUTROPHILS % 85.1 % (36.0-66.0); PLATELET COUNT, AUTOMATED 101 10^3/uL (150-450); RED BLOOD COUNT 3.05 10^6/uL (4.30-6.10); WHITE BLOOD COUNT 8.1 10^3/uL (4.0-10.0)
== END ==
LOC: M ONCR 13:31
PROVIDERS: ATTEND General Practice
DX: C34.11 Malignant neoplasm of upper lobe, right bronchus or lung (principal); F17.210 Nicotine dependence, cigarettes, uncomplicated; R00.0 Tachycardia, unspecified; R53.83 Other fatigue; Z71.2 Person consulting for explanation of examination or test findings; Z79.02 Long term (current) use of antithrombotics/antiplatelets; Z79.82 Long term (current) use of aspirin; Z79.891 Long term (current) use of opiate analgesic; Z79.899 Other long term (current) drug therapy; Z92.21 Personal history of antineoplastic chemotherapy; Z92.3 Personal history of irradiation

== ENCOUNTER 2023-05-02 14:43 | Inpatient (IN) | payer BC, MEDICARE, OTHER ==
[~2023-05-02] VITALS: Ht 182.9 cm; Wt 73.3 kg
[2023-05-02] MEDS ORDERED: NS 2,170 ML in IV 1 EA IV ONE (15:15)
[2023-05-02] MEDS ORDERED: SODIUM CHLORIDE 0.9% INJ 10 ML SYR IV PRN (15:25)
[2023-05-02] MEDS: cefTRIAXone SOD 2 GM in D5W MINI-BAG PLUS 50 ML IV ONE ×2 (16:02→17:42)
[2023-05-02 16:26] VITALS: O2SAT 95
[2023-05-02 16:28] LABS: ABG BASE EXCESS -2.7 (-2.0-2.0); ABG HCO3 20.3 MMOL/L (22.0-26.0); ABG O2 SATURATION 95.9 % (95.0-99.0); ABG PARTIAL PRESSURE CO2 29.4 mmHg (35.0-45.0); ABG PARTIAL PRESSURE O2 78.4 mmHg (75.0-100.0); ABG STANDARD HCO3 22.2 MMOL/L. (22.0-26.0); ABG TOTAL CO2 21.2 MMOL/L (23.0-31.0); ABG pH (ARTERIAL) 7.457 UNITS (7.350-7.450)
[2023-05-02 17:02] LABS: PROCALCITONIN 0.48 ng/ml
[2023-05-02 17:09] LABS: INR 1.48; PROTHROMBIN TIME 17.5 SECONDS (12.5-14.5)
[2023-05-02 17:10] LABS: PARTIAL THROMBOPLASTIN TIME 41.6 SECONDS (24.8-34.2)
[2023-05-02] MEDS ORDERED: ISOVUE-370 76% 100ML VIAL As Ordered ONE (17:12)
[2023-05-02 18:05] LABS: APPEARANCE, URINE HAZY (CLEAR); BACTERIA, URINE AUTO NEGATIVE (NEGATIVE); BILIRUBIN, URINE AUTO NEGATIVE (NEGATIVE); BLOOD, URINE BLOOD NEGATIVE (NEGATIVE); COLOR, URINE AMBER (YELLOW); GLUCOSE, URINE (UA) AUTO NEGATIVE (NEGATIVE); KETONE, URINE AUTO TRACE mg/dL (NEGATIVE); LEUKOCYTE ESTERASE, URINE AUTO TRACE (NEGATIVE); MUCUS, URINE LARGE (NEGATIVE); NITRITE, URINE AUTO NEGATIVE (NEGATIVE); PROTEIN, URINE AUTO 1+ mg/dL (NEGATIVE); RBC, URINE AUTO 0 /HPF (0-3); SPECIFIC GRAVITY URINE AUTO 1.038 (1.002-1.035); SQUAMOUS EPITHELIAL CELL UR AU 0 /HPF (0-6); WBC, URINE AUTO 18 /HPF (0-3)
[2023-05-02] MEDS ORDERED: PIPERACILLIN/TAZOBACTAM SOD 3.375 GM in D5W MINI-BAG PLUS 50 ML IV SCH (19:00)
[2023-05-02] MEDS ORDERED: MED REC IN PROGRESS XX SCH (19:10)
[2023-05-02] MEDS ORDERED: MAGN400T2 PO (19:23)
[2023-05-02] MEDS ORDERED: HOME MED LIST COMPLETE! XX SCH (19:30)
[2023-05-02 21:28] VITALS: BP 118/66; TEMP 97.4; O2SAT 99
[2023-05-02] MEDS ORDERED: NS 1,000 ML IV SCH (22:35)
[2023-05-02] MEDS: PIPERACILLIN/TAZOBACTAM SOD 4.5 GM in D5W MINI-BAG PLUS 50 ML IV SCH (23:38)
[2023-05-02 23:52] VITALS: BP 117/61; TEMP 97.4; O2SAT 90
[2023-05-03 04:01] VITALS: BP 121/58; TEMP 98.2; O2SAT 97
[2023-05-03] MEDS: PIPERACILLIN/TAZOBACTAM SOD 4.5 GM in D5W MINI-BAG PLUS 50 ML IV SCH ×3 (05:09→17:45)
[2023-05-03 06:07] LABS: BASO % 0.2 % (0.0-1.0); EOS % 0.1 % (0.0-3.0); HEMATOCRIT 27.8 % (42.0-52.0); HEMOGLOBIN 8.5 g/dl (13.5-17.5); LYMPH # 0.4 10^3/uL (1.5-5.0); LYMPH % 1.4 % (24.0-44.0); MEAN CORPUSCULAR HEMOGLOBIN 27.3 pg (27.0-33.0); MEAN CORPUSCULAR HGB CONC 30.6 g/dl (32.0-36.5); MEAN CORPUSCULAR VOLUME 89.4 fl (80.0-96.0); NEUTROPHILS # 21.9 10^3/uL (1.5-8.5); NEUTROPHILS % 85.1 % (36.0-66.0); PLATELET COUNT, AUTOMATED 327 10^3/uL (150-450); RED BLOOD COUNT 3.11 10^6/uL (4.30-6.10); WHITE BLOOD COUNT 25.7 10^3/uL (4.0-10.0)
[2023-05-03 06:20] LABS: MONO # 2.8 10^3/uL (0.0-0.8)
[2023-05-03 06:44] LABS: BLOOD UREA NITROGEN 10 MG/DL (9-23); CALCIUM LEVEL 8.5 MG/DL (8.3-10.6); CARBON DIOXIDE LEVEL 23 MMOL/L (20-31); CHLORIDE LEVEL 107 MMOL/L (98-107); CREATININE FOR GFR 0.71 MG/DL (0.70-1.30); GLOMERULAR FILTRATION RATE > 60.0 (>42); GLUCOSE, FASTING 102 MG/DL (74-106); MAGNESIUM LEVEL 1.8 MG/DL (1.8-2.4); POTASSIUM SERUM 3.8 MMOL/L (3.5-5.1); SODIUM LEVEL 136 MMOL/L (136-145)
[2023-05-03] MEDS: ATORVASTATIN 20 MG TAB PO SCH (08:35)
[2023-05-03] MEDS: PANTOPRAZOLE 40MG TAB (PROTONIX) PO SCH (08:35)
[2023-05-03] MEDS: MAGNESIUM OXIDE 400MG TAB (MAG-OX) PO SCH ×2 (08:35→20:08)
[2023-05-03] MEDS: CLOPIDOGREL 75 MG TAB PO SCH (08:35)
[2023-05-03] MEDS: ASPIRIN 81MG CHEW TABLET PO SCH (08:35)
[2023-05-03 08:39] VITALS: BP 103/57; TEMP 98; O2SAT 99
[2023-05-03 12:52] VITALS: BP 107/55; TEMP 97; O2SAT 96
[2023-05-03 16:40] VITALS: BP 100/53; TEMP 98.1; O2SAT 99
[2023-05-03 20:24] VITALS: BP 109/65; TEMP 99.5; O2SAT 97
[2023-05-04] VITALS (7 sets, daily range): BP systolic 100–122; BP diastolic 52–63; TEMP 98.2–99; O2SAT 96–98
[2023-05-04] MEDS: PIPERACILLIN/TAZOBACTAM SOD 4.5 GM in D5W MINI-BAG PLUS 50 ML IV SCH ×5 (00:05→23:39)
[2023-05-04 04:57] LABS: BASO # 0.1 10^3/uL (0.0-0.2); BASO % 0.2 % (0.0-1.0); EOS % 0.1 % (0.0-3.0); HEMATOCRIT 27.8 % (42.0-52.0); HEMOGLOBIN 8.4 g/dl (13.5-17.5); LYMPH # 0.6 10^3/uL (1.5-5.0); LYMPH % 2.1 % (24.0-44.0); MEAN CORPUSCULAR HEMOGLOBIN 27.3 pg (27.0-33.0); MEAN CORPUSCULAR HGB CONC 30.2 g/dl (32.0-36.5); MEAN CORPUSCULAR VOLUME 90.3 fl (80.0-96.0); MONO % 10.4 % (2.0-8.0); NEUTROPHILS # 22.2 10^3/uL (1.5-8.5); NEUTROPHILS % 85.2 % (36.0-66.0); PLATELET COUNT, AUTOMATED 366 10^3/uL (150-450); RED BLOOD COUNT 3.08 10^6/uL (4.30-6.10); WHITE BLOOD COUNT 26.1 10^3/uL (4.0-10.0)
[2023-05-04 04:59] LABS: MONO # 2.7 10^3/uL (0.0-0.8)
[2023-05-04 05:22] LABS: BLOOD UREA NITROGEN 8 MG/DL (9-23); CALCIUM LEVEL 8.4 MG/DL (8.3-10.6); CARBON DIOXIDE LEVEL 24 MMOL/L (20-31); CHLORIDE LEVEL 105 MMOL/L (98-107); CREATININE FOR GFR 0.69 MG/DL (0.70-1.30); GLOMERULAR FILTRATION RATE > 60.0 (>42); GLUCOSE, FASTING 114 MG/DL (74-106); MAGNESIUM LEVEL 1.7 MG/DL (1.8-2.4); POTASSIUM SERUM 3.7 MMOL/L (3.5-5.1); SODIUM LEVEL 136 MMOL/L (136-145)
[2023-05-04] MEDS ORDERED: MAG SULF 1GM/100ML (MAG RUN) 1 GM in IV 1 EA IV ONE (06:30)
[2023-05-04 07:31] LABS: PROCALCITONIN 0.52 ng/ml
[2023-05-04] MEDS: ATORVASTATIN 20 MG TAB PO SCH (09:08)
[2023-05-04] MEDS: PANTOPRAZOLE 40MG TAB (PROTONIX) PO SCH (09:08)
[2023-05-04] MEDS: CLOPIDOGREL 75 MG TAB PO SCH (09:08)
[2023-05-04] MEDS: ASPIRIN 81MG CHEW TABLET PO SCH (09:08)
[2023-05-04] MEDS: MAGNESIUM OXIDE 400MG TAB (MAG-OX) PO SCH ×2 (09:08→20:02)
[2023-05-04] MEDS: BUDESONIDE 0.5 MG/2 ML INHALATION SUSPENSION INH SCH ×2 (13:42→19:13)
[2023-05-04] MEDS: LEVALBUTEROL 1.25MG 0.5ML CONCENTRATE NEB INH SCH ×2 (13:43→19:13)
[2023-05-04] MEDS ORDERED: SODIUM CHLORIDE 0.9% INJ 10 ML SYR IV PRN (19:40)
[2023-05-05] MEDS: LEVALBUTEROL 1.25MG 0.5ML CONCENTRATE NEB INH SCH ×4 (01:08→20:49)
[2023-05-05 03:25] VITALS: BP 117/67; TEMP 98.2; O2SAT 97
[2023-05-05 05:20] LABS: BASO # 0.1 10^3/uL (0.0-0.2); BASO % 0.2 % (0.0-1.0); EOS % 0.1 % (0.0-3.0); HEMATOCRIT 26.2 % (42.0-52.0); HEMOGLOBIN 8.1 g/dl (13.5-17.5); LYMPH # 0.4 10^3/uL (1.5-5.0); LYMPH % 1.6 % (24.0-44.0); MEAN CORPUSCULAR HEMOGLOBIN 27.6 pg (27.0-33.0); MEAN CORPUSCULAR HGB CONC 30.9 g/dl (32.0-36.5); MEAN CORPUSCULAR VOLUME 89.1 fl (80.0-96.0); MONO % 10.3 % (2.0-8.0); NEUTROPHILS # 22.5 10^3/uL (1.5-8.5); NEUTROPHILS % 86.3 % (36.0-66.0); PLATELET COUNT, AUTOMATED 393 10^3/uL (150-450); RED BLOOD COUNT 2.94 10^6/uL (4.30-6.10)
[2023-05-05 05:23] LABS: BLOOD UREA NITROGEN 6 MG/DL (9-23); CALCIUM LEVEL 8.2 MG/DL (8.3-10.6); CARBON DIOXIDE LEVEL 25 MMOL/L (20-31); CHLORIDE LEVEL 104 MMOL/L (98-107); CREATININE FOR GFR 0.65 MG/DL (0.70-1.30); GLOMERULAR FILTRATION RATE > 60.0 (>42); GLUCOSE, FASTING 102 MG/DL (74-106); MAGNESIUM LEVEL 1.7 MG/DL (1.8-2.4); POTASSIUM SERUM 3.9 MMOL/L (3.5-5.1); SODIUM LEVEL 136 MMOL/L (136-145)
[2023-05-05] MEDS: PIPERACILLIN/TAZOBACTAM SOD 4.5 GM in D5W MINI-BAG PLUS 50 ML IV SCH ×3 (05:31→18:19)
[2023-05-05 06:03] LABS: MONO # 2.7 10^3/uL (0.0-0.8)
[2023-05-05] MEDS: BUDESONIDE 0.5 MG/2 ML INHALATION SUSPENSION INH SCH ×2 (07:21→20:49)
[2023-05-05 07:52] VITALS: BP 125/71; TEMP 98.1; O2SAT 98
[2023-05-05] MEDS: MAGNESIUM OXIDE 400MG TAB (MAG-OX) PO SCH ×2 (08:58→20:22)
[2023-05-05] MEDS: CLOPIDOGREL 75 MG TAB PO SCH (08:58)
[2023-05-05] MEDS: PANTOPRAZOLE 40MG TAB (PROTONIX) PO SCH (08:58)
[2023-05-05] MEDS: ASPIRIN 81MG CHEW TABLET PO SCH (08:58)
[2023-05-05] MEDS: MAG SULF 1GM/100ML (MAG RUN) 1 GM in IV 1 EA IV SCH ×2 (08:58→10:09)
[2023-05-05] MEDS: ATORVASTATIN 20 MG TAB PO SCH (08:58)
[2023-05-05 11:30] VITALS: BP 128/70; TEMP 98.6; O2SAT 96
[2023-05-05 15:36] VITALS: BP 94/52; TEMP 98.8; O2SAT 96
[2023-05-05 19:54] VITALS: BP 119/66; TEMP 100.7; O2SAT 97
[2023-05-05] MEDS: ACETAMINOPHEN TAB 650MG DOSE (2X325MG) PO PRN (20:22)
[2023-05-05 22:00] VITALS: BP 113/61; TEMP 98.9; O2SAT 96
[2023-05-06] MEDS: PIPERACILLIN/TAZOBACTAM SOD 4.5 GM in D5W MINI-BAG PLUS 50 ML IV SCH ×4 (00:33→17:55)
[2023-05-06] MEDS: LEVALBUTEROL 1.25MG 0.5ML CONCENTRATE NEB INH SCH ×4 (02:50→20:34)
[2023-05-06 05:01] VITALS: BP 116/68; TEMP 99.1; O2SAT 96
[2023-05-06 06:15] LABS: BASO # 0.1 10^3/uL (0.0-0.2); BASO % 0.3 % (0.0-1.0); EOS % 0.1 % (0.0-3.0); HEMATOCRIT 30.1 % (42.0-52.0); LYMPH # 0.4 10^3/uL (1.5-5.0); LYMPH % 1.4 % (24.0-44.0); MEAN CORPUSCULAR HEMOGLOBIN 26.9 pg (27.0-33.0); MEAN CORPUSCULAR HGB CONC 29.9 g/dl (32.0-36.5); MEAN CORPUSCULAR VOLUME 89.9 fl (80.0-96.0); MONO % 8.6 % (2.0-8.0); NEUTROPHILS # 24.5 10^3/uL (1.5-8.5); NEUTROPHILS % 88.3 % (36.0-66.0); PLATELET COUNT, AUTOMATED 491 10^3/uL (150-450); RED BLOOD COUNT 3.35 10^6/uL (4.30-6.10); WHITE BLOOD COUNT 27.8 10^3/uL (4.0-10.0)
[2023-05-06 06:46] LABS: BLOOD UREA NITROGEN 7 MG/DL (9-23); CALCIUM LEVEL 9.2 MG/DL (8.3-10.6); CARBON DIOXIDE LEVEL 29 MMOL/L (20-31); CHLORIDE LEVEL 103 MMOL/L (98-107); CREATININE FOR GFR 0.67 MG/DL (0.70-1.30); GLOMERULAR FILTRATION RATE > 60.0 (>42); GLUCOSE, FASTING 113 MG/DL (74-106); MAGNESIUM LEVEL 1.9 MG/DL (1.8-2.4); POTASSIUM SERUM 4.6 MMOL/L (3.5-5.1); SODIUM LEVEL 137 MMOL/L (136-145)
[2023-05-06 07:17] LABS: MONO # 2.4 10^3/uL (0.0-0.8)
[2023-05-06] MEDS: BUDESONIDE 0.5 MG/2 ML INHALATION SUSPENSION INH SCH ×2 (07:41→20:34)
[2023-05-06] MEDS ORDERED: ISOSORBIDE MON. (IMDUR) 30MG XR TAB PO SCH (09:00)
[2023-05-06] MEDS ORDERED: METOPROLOL SUCC (TopROL XL) 50MG **XL** TAB PO SCH (09:00)
[2023-05-06] MEDS: MAGNESIUM OXIDE 400MG TAB (MAG-OX) PO SCH ×2 (10:05→21:24)
[2023-05-06] MEDS: PANTOPRAZOLE 40MG TAB (PROTONIX) PO SCH (10:05)
[2023-05-06] MEDS: ASPIRIN 81MG CHEW TABLET PO SCH (10:05)
[2023-05-06] MEDS: CLOPIDOGREL 75 MG TAB PO SCH (10:05)
[2023-05-06] MEDS: ATORVASTATIN 20 MG TAB PO SCH (10:05)
[2023-05-06 20:29] VITALS: BP 121/70; TEMP 98.8; O2SAT 97
[2023-05-07] MEDS: PIPERACILLIN/TAZOBACTAM SOD 4.5 GM in D5W MINI-BAG PLUS 50 ML IV SCH ×2 (00:30→05:53)
[2023-05-07] MEDS: LEVALBUTEROL 1.25MG 0.5ML CONCENTRATE NEB INH SCH ×2 (02:00→07:30)
[2023-05-07 04:30] VITALS: BP 121/69; TEMP 99.3; O2SAT 97
[2023-05-07 06:19] LABS: BASO # 0.1 10^3/uL (0.0-0.2); BASO % 0.3 % (0.0-1.0); EOS % 0.2 % (0.0-3.0); HEMATOCRIT 32.1 % (42.0-52.0); HEMOGLOBIN 9.6 g/dl (13.5-17.5); LYMPH # 0.5 10^3/uL (1.5-5.0); LYMPH % 1.8 % (24.0-44.0); MEAN CORPUSCULAR HEMOGLOBIN 27.1 pg (27.0-33.0); MEAN CORPUSCULAR HGB CONC 29.9 g/dl (32.0-36.5); MEAN CORPUSCULAR VOLUME 90.7 fl (80.0-96.0); MONO % 8.8 % (2.0-8.0); NEUTROPHILS # 22.9 10^3/uL (1.5-8.5); NEUTROPHILS % 87.9 % (36.0-66.0); PLATELET COUNT, AUTOMATED 596 10^3/uL (150-450); RED BLOOD COUNT 3.54 10^6/uL (4.30-6.10)
[2023-05-07 06:22] LABS: MONO # 2.3 10^3/uL (0.0-0.8)
[2023-05-07 06:33] LABS: BLOOD UREA NITROGEN 7 MG/DL (9-23); CALCIUM LEVEL 9.1 MG/DL (8.3-10.6); CARBON DIOXIDE LEVEL 25 MMOL/L (20-31); CHLORIDE LEVEL 101 MMOL/L (98-107); CREATININE FOR GFR 0.64 MG/DL (0.70-1.30); GLOMERULAR FILTRATION RATE > 60.0 (>42); GLUCOSE, FASTING 105 MG/DL (74-106); MAGNESIUM LEVEL 1.8 MG/DL (1.8-2.4); POTASSIUM SERUM 4.3 MMOL/L (3.5-5.1); SODIUM LEVEL 135 MMOL/L (136-145)
[2023-05-07 06:56] LABS: PROCALCITONIN 0.25 ng/ml
[2023-05-07] MEDS: BUDESONIDE 0.5 MG/2 ML INHALATION SUSPENSION INH SCH (07:29)
[2023-05-07] MEDS ORDERED: AMOX875T2 PO (07:30)
[2023-05-07] MEDS ORDERED: ALBU6.7H6 INH (07:30)
[2023-05-07] MEDS ORDERED: PROBCAP14 PO (07:31)
[2023-05-07] MEDS ORDERED: SODIUM CHLORIDE 0.9% INJ 10 ML SYR IV PRN (08:05)
[2023-05-07 08:14] VITALS: BP 113/71
[2023-05-07] MEDS: ATORVASTATIN 20 MG TAB PO SCH (08:14)
[2023-05-07] MEDS: CLOPIDOGREL 75 MG TAB PO SCH (08:14)
[2023-05-07] MEDS: PANTOPRAZOLE 40MG TAB (PROTONIX) PO SCH (08:14)
[2023-05-07] MEDS: ASPIRIN 81MG CHEW TABLET PO SCH (08:14)
[2023-05-07] MEDS: MAGNESIUM OXIDE 400MG TAB (MAG-OX) PO SCH (08:14)
[2023-05-07] MEDS: ACETAMINOPHEN TAB 650MG DOSE (2X325MG) PO PRN (08:15)
[2023-05-07] MEDS ORDERED: METOPROLOL SUCC *XL* 25MG TAB (TopROL *XL*) PO SCH (09:00)
[2023-05-07] MEDS ORDERED: SODIUM CHLORIDE 0.9% INJ 10 ML SYR IV SCH (09:00)
== END 2023-05-07 10:38 | disposition home or self-care (01) | DRG 871 ==
LOC: M ED 14:43 → M ED INP 18:59 → M PCU 21:30 → M MSPAV 05-05 19:44
PROVIDERS: ADMIT Internal Medicine Nephrology; ATTEND Internal Medicine Nephrology
DX: A41.9 Sepsis, unspecified organism (principal); J18.9 Pneumonia, unspecified organism; C34.91 Malignant neoplasm of unspecified part of right bronchus or lung; D84.9 Immunodeficiency, unspecified; N39.0 Urinary tract infection, site not specified; K21.9 Gastro-esophageal reflux disease without esophagitis; I25.10 Atherosclerotic heart disease of native coronary artery without angina pectoris; I10 Essential (primary) hypertension; B97.4 Respiratory syncytial virus as the cause of diseases classified elsewhere; B95.7 Other staphylococcus as the cause of diseases classified elsewhere; E86.0 Dehydration; D69.6 Thrombocytopenia, unspecified; D63.8 Anemia in other chronic diseases classified elsewhere; Z95.2 Presence of prosthetic heart valve; F41.9 Anxiety disorder, unspecified; F32.A Depression, unspecified; Z92.3 Personal history of irradiation; E78.5 Hyperlipidemia, unspecified; Z92.21 Personal history of antineoplastic chemotherapy; R00.0 Tachycardia, unspecified; Z79.899 Other long term (current) drug therapy; Z79.82 Long term (current) use of aspirin; Z87.891 Personal history of nicotine dependence; F12.90 Cannabis use, unspecified, uncomplicated; E83.42 Hypomagnesemia; D50.9 Iron deficiency anemia, unspecified